=== PATIENT | male | born 1995 | race Caucasian/White ===

== ENCOUNTER 2021-01-30 02:09 | Emergency (ER) | payer BC, SELFPAY ==
--- NOTE | ~2021-01-30 | CT_ITS ---
EXAMINATION: CT abdomen pelvis wo con DATE: 01/30/2021 02:47 INDICATION: Left flank pain. History kidney stones. TECHNIQUE: Computed tomography (CT) of the abdomen and pelvis was performed without intravenous contr ast. Automated exposure control and iterative reconstruction technique were employed. Exam dose: 845 .93 mGy-cm total exam DLP. COMPARISON: 10/19/2017 CT abdomen pelvis FINDINGS: The lung bases are clear. Normal heart size. No pericardial or pleural effusion. The liver, spleen, pancreas, and adrenal glands are unremarkable. The gallbladder is present. No bile duct or pancreatic duct dilatation. 4 mm distal left ureteral calculus with proximal mild left hydroureteronephrosis. 2 mm nonobstructing mid left renal calculus and suggestion of a pinpoint nonobstructing lower pole le ft renal calculus. There may be one or 2 very subtle pinpoint obstructing right renal calculi. Up to 12 x 15 mm right lower lobe lymph nodes are noted which may indicate mesenteric adenitis. Normal caliber of the abdominal aorta. No intraperitoneal or retroperitoneal or pelvic mass lesion or adenopathy or ascites is noted otherwi se. The urinary bladder is evacuated. No bowel obstruction, bowel wall thickening, pneumatosis or intraperitoneal free air. Normal appendix . Included skeletal structures are unremarkable. IMPRESSION: 4 mm distal left ureteral calculus with mild left hydroureteronephrosis 2 mm nonobstructing left renal calculus. Minimal additional bilateral nephrolithiasis may be present. Reviewed, dictated and finalized at [facility]. Reviewed, dictated and finalized at [facility]. IMPRESSION: 4 mm distal left ureteral calculus with mild left hydroureteronephr osis 2 mm nonobstructing left renal calculus. Minimal additional bilateral nephrolit hiasis may be present.
[2021-01-30 02:14] VITALS: BP 139/88; PULSE 76; RESP 15; TEMP 36.3; O2SAT 100
[2021-01-30 02:31] LABS: Basophils Percent Auto 0.4 % (0.2-1.2); Eosinophils Absolute Auto 0.1 K/mm3 (0-0.3); Eosinophils Percent Auto 1.2 % (0-4.4); Hematocrit 51.9 % (42.0-52.0); Hemoglobin 17.3 g/dL (14.0-18.0); Immature Granulocyte Absolute 0.03 K/mm3 (0.00-0.031); Immature Granulocyte Percent A 0.3 % (0-0.5); Lymphocytes Absolute Auto 3.67 K/mm3 (0.9-3.2); Lymphocytes Percent Auto 37.1 % (18.3-44.2); Mean Corpuscular HGB Conc 33.3 g/dl (32-36); Mean Corpuscular Hemoglobin 28.5 pg (26-34); Mean Corpuscular Volume 85.6 fl (80-100); Mean Platelet Volume 10.3 fl (7.4-10.4); Monocytes Absolute Auto 0.8 K/mm3 (0.1-0.6); Monocytes Percent Auto 7.6 % (2.6-8.5); Neutrophils Absolute Auto 5.3 K/mm3 (1.3-6.7); Neutrophils Percent Auto 53.4 % (45.5-73.1); Platelet Count Result 254 k/mm3 (150-375); Red Blood Count 6.06 M/mm3 (4.6-6.20); Red Cell Distribution Width 13.4 % (11.5-14.5); White Blood Count 9.9 K/mm3 (4.5-10.0)
[2021-01-30 02:43] LABS: Alanine Aminotransferase 15 U/L (4-50); Albumin Level 4.5 g/dL (3.5-5.1); Alkaline Phosphatase 75 U/L (38-126); Anion Gap 11 mmol/L (8-16); Aspartate Amino Transferase 23 U/L (17-59); Bilirubin,Total 0.5 mg/dL (0.2-1.3); Blood Urea Nitrogen 10 mg/dL (9-20); Calcium 9.3 mg/dL (8.4-10.2); Carbon Dioxide 30 mmol/L (22-30); Chloride 100 mmol/L (98-107); Estimated CRCL calculation 108 ml/min; Estimated Glomerular Filt Rate > 60; Glucose 110 mg/dL (75-110); Lipase 107 U/L (23-300); Potassium 4.1 mmol/L (3.4-5.0); Sodium 141 mmol/L (137-145)
[2021-01-30 02:45] LABS: Add Urine Microscopic? YES; Appearance Urine Clear (Clear); Bilirubin Urine Negative (Negative); Blood Urine 2+ (Negative); Color Urine Yellow (Yellow); Glucose Urine UA Negative (Negative); Ketones Urine Negative (Negative); Leukocyte Esterase Ur Negative LEU/UL (Negative); Mucus Urine Few /lpf; Nitrate Urine Negative (Negative); Protein Urine Negative (Negative); RBC Urine 21-50 /hpf (0-2); Specific Grav Ur 1.018 (1.001-1.035); Squamous Epithelial Cell Urine Rare /hpf (Few)
[2021-01-30] MEDS: SODIUM CHLORIDE 0.9% IV 1,000 ML 999 ML IV CONT (02:45)
[2021-01-30] MEDS: KETOROLAC 30 MG/ML VIAL (*BKC) IV PUSH (02:47)
[2021-01-30] MEDS: ONDANSETRON INJ 4 MG/2 ML VIAL IV PUSH (02:47)
--- NOTE | 2021-01-30 03:02 | ED.GENADULT ---
HPI - General Adult General Chief complaint: Abdominal Pain Stated complaint: left flank pain Time Seen by Provider: 01/30/21 02:26 History of Present Illness HPI narrative: Patient with 5-year-old gentleman who presents the emergency department with chief complaint of left flank pain. The patient reports he has history of kidney stones and has passed stones before in the past. The patient states a couple days ago he started noticing some left flank discomfort and noticed there was some blood in his urine. Patient denies fever denies chills reports the pain improved but then came back this evening. Patient states he is taken some Toradol without relief states that pain is not improved by anything other than just spontaneously improving on its own. Patient states not worsened by any activity Related Data Allergies Allergy/AdvReac Type Severity Reaction Status Date / Time nickel Allergy Rash Verified 01/30/21 02:18 Review of Systems Review of Systems: Narrative: A 10 system review of systems was completed on the patient and is negative except for what is stated in the HPI. Nursing and ancillary documentation was reviewed. [facility] Social History Social History Gender identity (if verbalized by the patient): Male Comments Past medical history significant for kidney stones Social history the patient denies smoking Exam Narrative: Exam Narrative: GENERAL: Well-appearing, well-nourished, and in no acute distress. HEAD: Normocephalic, atraumatic. EYES: PERRLA and EOMI. ENT: Nares clear, no rhinorrhea or epistaxis. Mucous membranes moist. NECK: Supple. CHEST: Clear to auscultation. No respiratory distress. HEART: Regular rate and rhythm. No murmur heard. Normal peripheral pulses. ABDOMEN: Soft, nontender, nondistended, normal active bowel sounds. EXTREMITIES: Normal range of motion. No edema. SKIN: Warm, dry, no rash. NEURO: No focal deficits. Alert and oriented x3. PSYCH: Normal mood and affect. Course Vital Signs Vital signs: Vital Signs Temperature 36.3 C L 01/30/21 02:14 Pulse Rate 76 01/30/21 02:14 Respiratory Rate 15 01/30/21 02:14 Blood Pressure 139/88 01/30/21 02:14 Pulse Oximetry 100 01/30/21 02:14 Temperature 36.3 C L 01/30/21 02:14 Pulse Rate 76 01/30/21 02:14 Respiratory Rate 15 01/30/21 02:14 Blood Pressure 139/88 01/30/21 02:14 Pulse Oximetry 100 01/30/21 02:14 Medical Decision Making Vital Signs Vital Signs: Vital Signs Temperature 36.3 C L 01/30/21 02:14 Pulse Rate 76 01/30/21 02:14 Respiratory Rate 15 01/30/21 02:14 Blood Pressure 139/88 01/30/21 02:14 Pulse Oximetry 100 01/30/21 02:14 Temperature 36.3 C L 01/30/21 02:14 Pulse Rate 76 01/30/21 02:14 Respiratory Rate 15 01/30/21 02:14 Blood Pressure 139/88 01/30/21 02:14 Pulse Oximetry 100 01/30/21 02:14 Lab Data Result diagrams: 01/30/21 02:25 01/30/21 02:25 Labs: Lab Results 01/30/21 01/30/21 01/30/21 Range/Units 02:25 02:25 02:33 WBC 9.9 (4.5-10.0) K/mm3 RBC 6.06 (4.6-6.20) M/mm3 Hgb 17.3 (14.0-18.0) g/dL Hct 51.9 (42.0-52.0) % MCV 85.6 (80-100) fl MCH 28.5 (26-34) pg MCHC 33.3 (32-36) g/dl RDW 13.4 (11.5-14.5) % Plt Count 254 (150-375) k/mm3 MPV 10.3 (7.4-10.4) fl Immature Gran % (Auto) 0.3 (0-0.5) % Neut % (Auto) 53.4 (45.5-73.1) % Lymph % (Auto) 37.1 (18.3-44.2) % [place] % (Auto) 7.6 (2.6-8.5) % Eos % (Auto) 1.2 (0-4.4) % Baso % (Auto) 0.4 (0.2-1.2) % Lymph # (Auto) 3.67 H (0.9-3.2) K/mm3 [place] # (Auto) 0.8 H (0.1-0.6) K/mm3 Eos # (Auto) 0.1 (0-0.3) K/mm3 Baso # (Auto) 0.0 (0.0-0.1) K/mm3 Abs Immat Gran (auto) 0.03 (0.00-0.031) K/mm3 Absolute Neuts (auto) 5.3 (1.3-6.7) K/mm3 Absolute Nucleated RBC 0.0 (0.0-0.012) K/mm3 Nucleated RBC % 0.0 (0.0
[2021-01-30] MEDS: MORPHINE SULFATE (*CRX) 4 MG/ML INJ IV PUSH (03:28)
[2021-01-30 04:11] VITALS: BP 124/76; PULSE 56; RESP 14; O2SAT 98
== END 2021-01-30 04:15 | disposition home or self-care (01) ==
PROVIDERS: Emergency Provider Emergency Medicine
DX: N13.2 Hydronephrosis with renal and ureteral calculous obstruction (principal); Z87.442 Personal history of urinary calculi
CPT/HCPCS: 36415; 74176; 80053; 81001; 83690; 85025; 96361; 96374; 96375; 99284; J1885; J2270; J2405; J7030

== ENCOUNTER 2021-02-02 21:04 | Emergency (ER) | payer BC, SELFPAY ==
--- NOTE | ~2021-02-02 | CT_ITS ---
EXAMINATION: CT abdomen pelvis wo con EXAM DATE: 02/03/2021 01:36 INDICATION: Kidney stone. TECHNIQUE: Spiral CT of the abdomen and pelvis was performed without contrast. Axial, coronal and sag ittal images were reviewed. The dose-length product (DLP) for this examination was 1030.57 mGy-cm. The exposure was tailored according to patient size (auto mA exposure control), and iterative reconst ruction (ASIR) was used as additional dose reduction technique. Comparison is made to prior examinati on from 01/30/2021. FINDINGS: There is a 3.5 mm stone in the left ureterovesicular junction, with mild obstructive nephro shi. This was about 2 cm more proximally located 4 days ago. Additional punctate left nephrolithias is. The prostate is unremarkable. The bladder is unremarkable. The liver, spleen, adrenal glands an d pancreas are unremarkable. Gallbladder is unremarkable. No biliary obstruction. There is no retr operitoneal or pelvic lymphadenopathy. The appendix is normal. Several small pericecal lymph nodes. The stomach and small bowel are unremar kable. There is moderate amount of colonic stool. No free intraperitoneal gas. The heart is norm al in size. There are no pericardial or pleural effusions. The lung bases are unremarkable. There are no osteoblastic or osteolytic lesions identified. IMPRESSION: 1. Left UVJ 3.5 mm stone, mild obstructive nephropathy. 2. Punctate left nephrolithiasis. Reviewed, dictated and finalized at [facility].
[2021-02-02 21:32] VITALS: BP 118/69; PULSE 110; RESP 16; TEMP 36.4; O2SAT 100
[2021-02-02 21:55] LABS: Basophils Absolute Auto 0.1 K/mm3 (0.0-0.1); Basophils Percent Auto 0.5 % (0.2-1.2); Eosinophils Absolute Auto 0.2 K/mm3 (0-0.3); Eosinophils Percent Auto 2.1 % (0-4.4); Hematocrit 46.7 % (42.0-52.0); Hemoglobin 16.1 g/dL (14.0-18.0); Immature Granulocyte Absolute 0.02 K/mm3 (0.00-0.031); Immature Granulocyte Percent A 0.2 % (0-0.5); Lymphocytes Absolute Auto 2.96 K/mm3 (0.9-3.2); Mean Corpuscular HGB Conc 34.5 g/dl (32-36); Mean Platelet Volume 11.2 fl (7.4-10.4); Monocytes Absolute Auto 0.7 K/mm3 (0.1-0.6); Monocytes Percent Auto 7.2 % (2.6-8.5); Neutrophils Absolute Auto 6.2 K/mm3 (1.3-6.7); Platelet Count Result 226 k/mm3 (150-375); Red Blood Count 5.56 M/mm3 (4.6-6.20); Red Cell Distribution Width 13.2 % (11.5-14.5); White Blood Count 10.2 K/mm3 (4.5-10.0)
[2021-02-02 22:13] LABS: Anion Gap 9 mmol/L (8-16); Blood Urea Nitrogen 12 mg/dL (9-20); Calcium 9.4 mg/dL (8.4-10.2); Carbon Dioxide 28 mmol/L (22-30); Chloride 104 mmol/L (98-107); Estimated CRCL calculation 78 ml/min; Estimated Glomerular Filt Rate > 60; Glucose 115 mg/dL (75-110); Potassium 3.9 mmol/L (3.4-5.0); Sodium 141 mmol/L (137-145)
[2021-02-02 22:48] LABS: Add Urine Microscopic? YES; Appearance Urine Clear (Clear); Bacteria Urine Trace /hpf; Bilirubin Urine Negative (Negative); Blood Urine 2+ (Negative); Color Urine Yellow (Yellow); Glucose Urine UA Negative (Negative); Ketones Urine Trace mg/dL (Negative); Leukocyte Esterase Ur 1+ LEU/UL (Negative); Mucus Urine Rare /lpf; Nitrate Urine Negative (Negative); Protein Urine Negative (Negative); Specific Grav Ur 1.011 (1.001-1.035); Urobilinogen Urine Negative mg/dL (<2.0); WBC Urine 16-20 /hpf
[2021-02-03 01:03] VITALS: BP 139/81; PULSE 64; RESP 18; O2SAT 100
--- NOTE | 2021-02-03 01:19 | ED.ABDPAIN ---
HPI - Abdominal Pain General Chief Complaint: Abdominal Pain Stated Complaint: left flank pain-kidney stone Time Seen by Provider: 02/03/21 01:02 Source: patient and RN notes reviewed Mode of arrival: ambulatory Limitations: no limitations History of Present Illness HPI narrative: Patient is 25 years old white male presents with left flank pain that started 3 to 4 days ago, CAT scan 4 days ago showed 4 mm left distal ureter. Patient is back today because the pain is getting worse. Associated with nausea. Patient denies any fever or chills. Related Data Allergies Allergy/AdvReac Type Severity Reaction Status Date / Time nickel Allergy Rash Verified 01/30/21 02:18 Review of Systems Review of Systems: Narrative: CONSTITUTIONAL: Denies fever, chills, or sweats. EYES: Denies visual changes, redness, or discharge. ENT: Denies rhinorrhea, congestion, sore throat, or otalgia. CARDIOVASCULAR: Denies chest pain, palpitations, or edema. RESPIRATORY: Denies cough or dyspnea. GASTROINTESTINAL: Denies abdominal pain, nausea, vomiting, or diarrhea. GENITOURINARY: Denies dysuria or hematuria. SKIN: Denies rash or itching. MUSCULOSKELETAL: Denies back pain, joint pain, or myalgia. NEUROLOGIC: Denies headache, numbness, or weakness. PSYCHIATRIC: Denies anxiety or depression. [facility] Social History Social History Gender identity (if verbalized by the patient): Male Exam Narrative: Exam Narrative: General appearance: Well-developed, well-nourished Skin: Normal color Head: Normocephalic, nontraumatic Eyes: Clear conjunctiva ENT: Oropharynx normal, ears normal, nose normal Neck: Supple, nontender Chest and respiratory: Airway patent, no respiratory distress, no accessory muscle use Heart: Regular rate/rhythm Abdomen: Soft, mild tenderness left flank r, no organomegaly, quiet bowel sounds Vascular: Normal peripheral pulses, normal capillary refill. Musculoskeletal: Normal range of motion, nontender back Neurologic: Alert and oriented ?3, [employer] COORDINATOR is normal as tested, no gross motor deficit Course Course Emergency Course: Stable Reevaluation(s) Reevaluation #1: Patient feeling much better, declined to be hospitalized and would like to go home, is telling me that he ran out of [employer] because he gave him only 12 tablets last visit. Date: 02/03/21 Time: 02:26 Vital Signs Vital signs: Vital Signs Temperature 36.4 C L 02/02/21 21:32 Pulse Rate 110 H 02/02/21 21:32 Respiratory Rate 16 02/02/21 21:32 Blood Pressure 118/69 02/02/21 21:32 Pulse Oximetry 100 02/02/21 21:32 Temperature 36.4 C L 02/02/21 21:32 Pulse Rate 64 02/03/21 01:03 Respiratory Rate 18 02/03/21 01:03 Blood Pressure 139/81 02/03/21 01:03 Pulse Oximetry 100 02/03/21 01:03 MDM - Abdominal Pain MDM Narrative Medical decision making narrative: Kidney stone is my concern Lab Data Result diagrams: 02/02/21 21:41 02/02/21 21:41 Labs: Lab Results 02/02/21 02/02/21 02/02/21 Range/Units 21:41 21:41 22:19 WBC 10.2 H (4.5-10.0) K/mm3 RBC 5.56 (4.6-6.20) M/mm3 Hgb 16.1 (14.0-18.0) g/dL Hct 46.7 (42.0-52.0) % MCV 84.0 (80-100) fl MCH 29.0 (26-34) pg MCHC 34.5 (32-36) g/dl RDW 13.2 (11.5-14.5) % Plt Count 226 (150-375) k/mm3 MPV 11.2 H (7.4-10.4) fl Immature Gran % (Auto) 0.2 (0-0.5) % Neut % (Auto) 61.0 (45.5-73.1) % Lymph % (Auto) 29.0 (18.3-44.2) % [place] % (Auto) 7.2 (2.6-8.5) % Eos % (Auto) 2.1 (0-4.4) % Baso % (Auto) 0.5 (0.2-1.2) % Lymph # (Auto) 2.96 (0.9-3.2) K/mm3 [place] # (Auto) 0.7 H (0.1
[2021-02-03] MEDS: ONDANSETRON INJ 4 MG/2 ML VIAL IV PUSH (01:49)
[2021-02-03] MEDS: SODIUM CHLORIDE 0.9% IV 1,000 ML 999 ML IV CONT (01:49)
[2021-02-03] MEDS: HYDROmorphone HCL INJ (*CRX) 1 MG/ML SYR 0.5 MG IV PUSH (01:49)
[2021-02-03] MEDS: KETOROLAC 30 MG/ML VIAL (*BKC) IV PUSH (03:22)
[2021-02-03 03:23] VITALS: BP 124/84; PULSE 67; RESP 18; O2SAT 99
== END 2021-02-03 03:59 | disposition home or self-care (01) ==
PROVIDERS: Emergency Medicine; Emergency Provider Emergency Medicine
DX: N13.8 Other obstructive and reflux uropathy (principal); N20.2 Calculus of kidney with calculus of ureter
CPT/HCPCS: 36415; 74176; 80048; 81001; 85025; 87086; 96361; 96374; 96375; 99284; J1170; J1885; J2405; J7030